=== PATIENT | male | born 1980 | race Caucasian/White ===

== ENCOUNTER 2024-03-02 21:23 | Emergency (ER) | payer MEDICARE, MEDICAID ==
[~2024-03-02] VITALS: Ht 177.8 cm; Wt 82.0 kg
[2024-03-02 21:26] VITALS: BP 136/80; PULSE 115; RESP 16; TEMP 98.5; O2SAT 97
== END 2024-03-02 22:10 | disposition left against medical advice (07) ==
LOC: ER 21:23
DX: N50.819 Testicular pain, unspecified (principal); Z53.21 Procedure and treatment not carried out due to patient leaving prior to being seen by health care provider